=== PATIENT | male | born 1990 | race Caucasian/White ===

== ENCOUNTER 2017-02-03 17:52 | Emergency (ER) | payer MEDICAID, OTHER ==
[~2017-02-03] VITALS: Ht 180.3 cm; Wt 90.7 kg
--- NOTE | 2017-02-03 19:40 | ED Neurological Problem ---
General Chief Complaint: Neurological Problems Stated Complaint: SEIZURE Nursing Triage Note: c/o possible seizure activity. Pt has been off his seizure and psych meds x 1 month. Pt awake, alerty, and active on ER admission. Nursing Sepsis Screen: No Definite Risk Source: patient Exam Limitations: other (flight of ideas) History of Present Illness Time seen by provider: 19:40 Initial Comments 26-year-old male patient presents to the emergency department with complaints of possible seizure activity. Patient was brought to the ED by EMS. States he has been off of his seizure and psychiatric medications for one month. States he moved here from [place]. Reports seizure is similar to usual seizures. States his was present at the time of incident. reported patient slumped over in the chair and became unresponsive. Reportedly patient was shaking for approximately 1 minute. Patient states he was told by his that they laid him on the floor to keep him from biting his tongue. Does complain of a headache and states this is normal for post seizure symptoms. Denies being incontinent of bowel or bladder. Timing/Duration: other (just prior to arrival. Symptoms resolved.) Allergies and Home Medications Allergies Coded Allergies: No Known Drug Allergies (Unverified , 02/03/17) Home Medications Aripiprazole 20 Mg Tablet, 20 MG PO DAILY, #30 Ref 0 Prescribed by: NALINI SEWELL on 02/03/171954 Carbamazepine 200 Mg Tablet, 200 MG PO TID, #90 Ref 0 Prescribed by: NALINI SEWELL on 02/03/171954 Escitalopram Oxalate 20 Mg Tablet, 20 MG PO DAILY, #30 Ref 0 Prescribed by: NALINI SEWELL on 02/03/171954 Levetiracetam 500 Mg Tablet, 500 MG PO BID, #60 Ref 0 Prescribed by: NALINI SEWELL on 02/03/171954 Past Zmpbvoo-Yybmsr-Rcssea Hx Patient Social History Alcohol Use: Denies Use Recreational Drug Use: No Recent Foreign Travel: No Contact w/Someone Who Travel: No Recent Infectious Disease Expo: No Physical Exam Vital Signs Vital Sign - Last 12Hours 02/03/17 17:55 Temp 97.5 Pulse 70 Resp 16 B/P (MAP) 110/65 Pulse Ox 98 O2 Delivery Room Air Capillary Refill : Less Than 3 Seconds Progress/Results/Core Measures Results/Orders Vital Signs/I&O Vital Sign - Last 12Hours 02/03/17 17:55 Temp 97.5 Pulse 70 Resp 16 B/P (MAP) 110/65 Pulse Ox 98 O2 Delivery Room Air Blood Pressure Mean: 80 Departure Impression Impression: Primary Impression: Seizure disorder Additional Impression: Medication refill Disposition: HOME, SELF-CARE Condition: Improved Departure-Patient Inst. Decision time for Depature: 19:40 Referrals: UNKNOWN (PCP/Family) Primary Care Physician Patient Instructions: Epilepsy in Adults Add. Discharge Instructions: All discharge instructions reviewed with patient and/or family. Voiced understanding. Medications as instructed. Tylenol Extra Strength over-the- counter as directed for pain or headache. Ibuprofen 800 mg by mouth every 8 hours as needed for pain or headache. Follow-up with [facility] as an outpatient for recheck and all further medication refills. Expect a call from [facility] to notify you of appointment time for outpatient services/follow-up. Follow-up with the primary care physician of your choice to establish care as an outpatient. Call Sunday for appointment time. Return to the emergency department for worsened headache, changes in behavior, slurred speech, shortness of air, seizure, chest pain, vomiting, neck pain, back pain, or any other concerns. Scripts Carbamazepine (Tegretol) 200 Mg Tablet 200 MG PO TID, #90 TAB 0 Refills Prov: NALINI SEWELL 02/03/17 Levetiracetam (Keppra) 500 Mg Tablet 500 MG PO BID, #60 TAB 0 Refills Prov: NALINI SEWELL 02/03/17 Aripiprazole (Abilify) 20 Mg Tablet 20 MG PO DAILY, #30 TAB 0 Refills Prov: NALINI SEWELL 02/03/17 Escitalopram Oxalate (Lexapro) 20 Mg Tablet 20 MG PO DAILY, #30 TAB 0 Refills Prov: NALINI SEWELL 02/03/17 Work/School Note: Local [employer] Listing NALINI SEWELL Feb 03, 2017 19:40
[2017-02-03] MEDS ORDERED: ARPZ20T PO (19:55)
[2017-02-03] MEDS ORDERED: ESCI20TA PO (19:55)
[2017-02-03] MEDS ORDERED: CARB200T PO (19:55)
[2017-02-03] MEDS ORDERED: LEVE500T99 PO (19:55)
[2017-02-03] MEDS ORDERED: carBAMazepine 200 MG (TEGretol) TAB PO ONE (20:15)
[2017-02-03] MEDS ORDERED: ARIPIPRAZOLE 10 MG (ABILIFY) TAB PO ONE (20:15)
[2017-02-03] MEDS ORDERED: LEVETIRACETAM INJECTION 1,000 MG in NS (IVPB) 100 ML IV ONE (20:15)
[2017-02-03 21:06] VITALS: BP 110/65
== END 2017-02-03 21:06 | disposition home or self-care (01) ==
LOC: ER 17:53
DX: G40.909 Epilepsy, unspecified, not intractable, without status epilepticus (principal)
CPT/HCPCS: 96374; 99283

== ENCOUNTER 2017-03-15 21:46 | Emergency (ER) | payer SELFPAY ==
[~2017-03-15] VITALS: Ht 180.3 cm; Wt 90.7 kg
[~2017-03-15 21:46] MED LIST: ARPZ20T PO; CARB200T PO; ESCI20TA PO; LEVE500T99 PO
[2017-03-15] MEDS ORDERED: SULF1TAB35 PO (22:14)
--- NOTE | 2017-03-15 22:14 | ED Integumentary General ---
General Chief Complaint: Skin/Wound Problems Stated Complaint: LT SHOULDER WOUND/SORE Source: patient Exam Limitations: no limitations History of Present Illness Time seen by provider: 22:12 Initial Comments To ER with a left shoulder wound that he first noticed yesterday. This began as a pimple and then this morning this became larger and ruptured on its own and he states blood was gushing down his back. No fever or chills. History of abscesses. Timing/Duration: yesterday Severity: mild Associated Symptoms: denies symptoms Allergies and Home Medications Allergies Coded Allergies: No Known Drug Allergies (Unverified , 02/03/17) Home Medications Aripiprazole 20 Mg Tablet, 20 MG PO DAILY, #30 Ref 0 Prescribed by: NALINI SEWELL on 02/03/171954 Carbamazepine 200 Mg Tablet, 200 MG PO TID, #90 Ref 0 Prescribed by: NALINI SEWELL on 02/03/171954 Escitalopram Oxalate 20 Mg Tablet, 20 MG PO DAILY, #30 Ref 0 Prescribed by: NALINI SEWELL on 02/03/171954 Levetiracetam 500 Mg Tablet, 500 MG PO BID, #60 Ref 0 Prescribed by: NALINI SEWELL on 02/03/171954 Constitutional: see HPI, No chills, No fever EENTM: see HPI Respiratory: no symptoms reported Cardiovascular: no symptoms reported Genitourinary: no symptoms reported Musculoskeletal: no symptoms reported Skin: see HPI Psychiatric/Neurological: No Symptoms Reported Endocrine: No Symptoms Reported Past Hfjgkzy-Eyjrbn-Wkjxpf Hx Patient Social History Alcohol Use: Denies Use Recreational Drug Use: No Smoking Status: Current Everyday Smoker Type Used: Cigarettes 2nd Hand Smoke Exposure: Yes Recent Foreign Travel: No Contact w/Someone Who Travel: No Recent Hopitalizations: No Immunizations Up To Date Tetanus Booster (TDap): Unknown Seasonal Allergies Seasonal Allergies: No Surgeries History of Surgeries: No Respiratory History of Respiratory Disorde: No Cardiovascular History of Cardiac Disorders: No Neurological History of Neurological Disord: Yes Neurological Disorders: Seizure Disorder Genitourinary History of Genitourinary Disor: No Gastrointestinal History of Gastrointestinal Di: No Musculoskeletal History of Musculoskeletal Dis: No Endocrine History of Endocrine Disorders: No HEENT History of HEENT Disorders: No Cancer History of Cancer: No Psychosocial History of Psychiatric Problem: Yes Behavioral Health Disorders: Anxiety, Depression Integumentary History of Skin or Integumenta: Yes Skin/Integumentary Disorders: Recent Skin Changes Family Medical History Significant Family History: No Pertinent Family Hx Physical Exam Vital Signs Capillary Refill : General Appearance: WD/WN, no apparent distress HEENT: PERRL/EOMI, normal ENT inspection Neck: non-tender, full range of motion Respiratory: normal breath sounds, no respiratory distress, no accessory muscle use Gastrointestinal: non tender, soft Extremities: normal range of motion, non-tender Neurologic/Psychiatric: alert, normal mood/affect, oriented x 3 Skin: normal color, warm/dry Skin Problem Location: other (small ulcerated area to the left shoulder. There is minimal surrounding erythema without induration or fluctuance. Culture of this wound bed was taken. No active bleeding.) Progress/Results/Core Measures Results/Orders My Orders Orders - NIGEL BARFIELD APRN Wound Culture (03/15/17 22:11) Departure Impression Impression: Primary Impression: Abscess Disposition: 01 HOME, SELF-CARE Condition: Stable Departure-Patient Inst. Decision time for Depature: 22:13 Referrals: NO,LOCAL PHYSICIAN (PCP/Family) Primary Care Physician Patient Instructions: Wound Care (DC) Add. Discharge Instructions: 1. Take antibiotics as directed starting tomorrow 2. Return to ER for any concerns 3. All discharge instructions reviewed with patient and/or family. Voiced understanding. Scripts Sulfamethoxazole/Trimethoprim (Bactrim Ds Tablet) 1 Each Tablet 1 EACH PO BID, #14 TAB Prov: NIGEL BARFIELD APRN 03/15/17 NIGEL BARFIELD APRN Mar 15, 2017 22:14
[2017-03-15 22:23] VITALS: BP 131/107
== END 2017-03-15 22:23 | disposition home or self-care (01) ==
LOC: EDUNIT# 21:46 → ER 21:48
DX: L02.414 Cutaneous abscess of left upper limb (principal); G40.909 Epilepsy, unspecified, not intractable, without status epilepticus; F41.9 Anxiety disorder, unspecified; F32.9 Major depressive disorder, single episode, unspecified; F17.210 Nicotine dependence, cigarettes, uncomplicated
CPT/HCPCS: 87070; 87077; 87186; 87205; 99282

== ENCOUNTER 2017-03-19 20:32 | Emergency (ER) | payer SELFPAY ==
[~2017-03-19] VITALS: Ht 180.3 cm; Wt 90.7 kg
[~2017-03-19 20:32] MED LIST changes: +SULF1TAB35 PO
[2017-03-19] MEDS ORDERED: LACTATED RINGERS 1,000 ML IV ONE (20:37)
[2017-03-19 20:58] LABS: BASOPHILS % (AUTO) 0 % (0-10); EOSINOPHILS # (AUTO) 0.1 10^3/uL (0.0-0.3); EOSINOPHILS % (AUTO) 2 % (0-10); LYMPHOCYTES # (AUTO) 1.9 X 10^3 (1.0-4.0); LYMPHOCYTES % (AUTO) 32 % (12-44); MEAN CORPUSCULAR HEMOGLOBIN 29 PG (25-34); MEAN CORPUSCULAR HGB CONC 34 G/DL (32-36); MEAN CORPUSCULAR VOLUME 85 FL (80-99); MEAN PLATELET VOLUME 10.1 FL (7.4-10.4); MONOCYTES # (AUTO) 0.6 X 10^3 (0.0-1.0); MONOCYTES % (AUTO) 9 % (0-12); NEUTROPHILS # (AUTO) 3.4 X 10^3 (1.8-7.8); NEUTROPHILS % (AUTO) 57 % (42-75); PLATELET COUNT 153 10^3/uL (130-400); RED CELL DISTRIBUTION WIDTH 12.8 % (10.0-14.5)
--- NOTE | 2017-03-19 21:10 | ED Psychosocial ---
General Stated Complaint: SEIZURE Source: patient (EXTREMELY DIFFICULT HISTORIAN--VERY DIFFICULT TO KEEP ON SUBJECT), old records History of Present Illness Time seen by provider: 20:32 Initial Comments PT ARRIVES VIA EMS FROM HOME EMS WAS CALLED FOR PT WITH ALLEGED SEIZURE ACTIVITY. DETAILS UNKNOWN PT WITH HX OF SEIZURES, WELL EXTENSIVE PSYCH ISSUES PT RECENTLY MOVED HERE FROM [place] PT CLAIMS HE HAS BEEN OUT OF ALL OF HIS SEIZURE AND PSYCH MEDICATIONS FOR UNKNOWN LENGTH OF TIME PT IS NOT POST-ICTAL NO INCONTINENCE OF BOWEL OR BLADDER PT STATES HE DOES NOT WANT TO BE SEEN FOR HIS SEIZURE STATES HE WANTS A PSYCH EVALUATION PT STATES HE "WANTS TO SLIT HIS WRISTS" --THIS IS ONGOING PROBLEM FOR A VERY LONG TIME, AND IS NO DIFFERENT TODAY HAS NOT SOUGHT CARE FOR THIS SINCE LEAVING [place] PT RECEIVED AN UPSETTING TEXT AT SOME TIME AND THIS APPEARS TO BE WHAT HE IS FIXATED ON AT THIS TIME ON REVIEW OF OLD CHARTS, PT WAS HERE 02/03/17 FOR ALLEGED SEIZURE ACTIVITY ALSO , AND HAD REPORTED AT THAT TIME HE WAS OUT OF ALL OF HIS MEDICATIONS AND RX'S WERE WRITTEN FOR THE FOLLOWING: -CARBAMAZEPINE (TEGRETOL) 200 MG 1 TID #90 -LEVETIRACETAM (KEPPRA) 500 MG 1 BID #60 -ARIPIPRAZOLE ( ABILIFY ) 20 MG 1 DAILY #30 -ESCITALOPRAM ( LEXAPRO ) 20 MG 1 DAILY #30 [facility] WAS CONTACTED AND ARRANGEMENTS WERE MADE FOR PT TO FOLLOW UP WITH THEM, WHICH PT DID NOT DO--PT STATES "NO ONE WILL SEE HIM" AT [facility] OR [facility] OR [facility] PT WAS ALSO HERE 03/15/17 FOR ABSCESS/CELLULITIS Allergies and Home Medications Allergies Coded Allergies: No Known Drug Allergies (Unverified , 02/03/17) Home Medications Aripiprazole 20 Mg Tablet, 20 MG PO DAILY, #30 Ref 0 Prescribed by: NALINI SEWELL on 02/03/171954 Carbamazepine 200 Mg Tablet, 200 MG PO TID, #90 Ref 0 Prescribed by: NALINI SEWELL on 02/03/171954 Escitalopram Oxalate 20 Mg Tablet, 20 MG PO DAILY, #30 Ref 0 Prescribed by: NALINI SEWELL on 02/03/171954 Levetiracetam 500 Mg Tablet, 500 MG PO BID, #60 Ref 0 Prescribed by: NALINI SEWELL on 02/03/171954 Sulfamethoxazole/Trimethoprim 1 Each Tablet, 1 EACH PO BID, #14 Prescribed by: NIGEL BARFIELD on 03/15/174 Constitutional: other (UNABLE TO OBTAIN ANY RELEVANT INFORMATION FROM PT) Psychiatric/Neurological: See HPI Past Fdnuqah-Lpbuoa-Gcpmzd Hx Patient Social History 2nd Hand Smoke Exposure: Yes Recent Hopitalizations: No Immunizations Up To Date Tetanus Booster (TDap): Unknown Seasonal Allergies Seasonal Allergies: No Surgeries History of Surgeries: No Respiratory History of Respiratory Disorde: No Cardiovascular History of Cardiac Disorders: No Neurological History of Neurological Disord: Yes Neurological Disorders: Seizure Disorder Genitourinary History of Genitourinary Disor: No Gastrointestinal History of Gastrointestinal Di: No Musculoskeletal History of Musculoskeletal Dis: No Endocrine History of Endocrine Disorders: No HEENT History of HEENT Disorders: No Cancer History of Cancer: No Psychosocial History of Psychiatric Problem: Yes (SUICIDAL IDEATIONS) Behavioral Health Disorders: Anxiety, Depression Integumentary History of Skin or Integumenta: Yes Skin/Integumentary Disorders: Recent Skin Changes Family Medical History Significant Family History: No Pertinent Family Hx Physical Exam Vital Signs Capillary Refill : General Appearance: WD/WN, no apparent distress, other (PT WITH CONSTANT MOVEMENTS OF ENTIRE BODY, MOUTH AND FACE, WITH CONSTANT 'TWITCHING" OF FACE) Respiratory: normal breath sounds Cardiovascular: regular rate, rhythm 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, no motor/sensory deficits, alert, other (CONSTANT MOVEMENTS, CRUSING, BELLIGERANT, VERY ARGUMENTATIVE, VERY DIFFICULT TO KEEP ON SUBJECT--SPEECH VERY RAPID) Progress/Results/Core Measures Results/Orders Lab Results Laboratory Tests Test 03/19/17 20:47 Range/Units White Blood Count 6.0 4.3-11.0 10^3/uL Red Blood Count 5.30 4.35-5.85 10^6/uL Hemoglobin 15.4 13.3-17.7 G/DL Hematocrit 45 40-54 % Mean Corpuscular Volume 85 80-99 FL Mean Corpuscular Hemoglobin 29 25-34 PG Mean Corpuscular Hemoglobin Concent 34 32-36 G/DL Red Cell Distribution Width 12.8 10.0-14.5 % Platelet Count 153 130-400 10^3/uL Mean Platelet Volume 10.1 7.4-10.4 FL Neutrophils (%) (Auto) 57 42-75 % Lymphocytes (%) (Auto) 32 12-44 % Monocytes (%) (Auto) 9 0-12 % Eosinophils (%) (Auto) 2 0-10 % Basophils (%) (Auto) 0 0-10 % Neutrophils # (Auto) 3.4 1.8-7.8 X 10^3 Lymphocytes # (Auto) 1.9 1.0-4.0 X 10^3 Monocytes # (Auto) 0.6 0.0-1.0 X 10^3 Eosinophils # (Auto) 0.1 0.0-0.3 10^3/uL Basophils # (Auto) 0.0 0.0-0.1 10^3/uL Sodium Level 143 135-145 MMOL/L Potassium Level 3.4 L 3.6-5.0 MMOL/L Chloride Level 110 H 98-107 MMOL/L Carbon Dioxide Level 22 21-32 MMOL/L Anion Gap 11 5-14 MMOL/L Blood Urea Nitrogen 13 7-18 MG/DL Creatinine 1.08 0.60-1.30 MG/DL Estimat Glomerular Filtration Rate > 60 BUN/Creatinine Ratio 12 Glucose Level 78 70-105 MG/DL Calcium Level 9.3 8.5-10.1 MG/DL Magnesium Level 2.1 1.8-2.4 MG/DL Total Bilirubin 0.6 0.1-1.0 MG/DL Aspartate Amino Transf (AST/SGOT) 21 5-34 U/L Alanine Aminotransferase (ALT/SGPT) 18 0-55 U/L Alkaline Phosphatase 98 40-136 U/L Total Creatine Kinase 451 H 30-200 U/L Creatine Kinase MB 2.0 <6.6 NG/ML Total Protein 7.2 6.4-8.2 GM/DL Albumin 4.4 3.2-4.5 GM/DL TSH Nance Testing 0.58 0.35-4.94 UIU/ML Carbamazepine (Tegretol) Level 3.2 L 4.0-12.0 UG/ML My Orders Orders - DELL WELCH DO Saline Lock/Iv-Start (03/19/17 20:37) Ekg Tracing (03/19/17 20:37) Monitor-Rhythm Ecg Trace Only (03/19/17 20:37) Carbamazepine (Tegretol) (03/19/17 20:37) Cbc With Automated Diff (03/19/17 20:37) Comprehensive Metabolic Panel (03/19/17 20:37) Creatine Kinase (03/19/17 20:37) Creatine Kinase Mb (03/19/17 20:37) Magnesium (03/19/17 20:37) Thyroid Analyzer (03/19/17 20:37) Saline Lock/Iv-Start (03/19/17 20:37) Lactated Ringers (Lr 1000 Ml Iv Solution (03/19/17 20:37) Progress Note : Progress Note PT REFUSED TO GIVE URINE SPECIMEN PT MADE NO SUICIDAL STATEMENTS FOR REMAINDER OF ER STAY ARRIVED DURING COURSE OF ER STAY 2109--PT REMAINS BELLIGERENT AND ARGUMENTATIVE, AND NOW WANTS TO LEAVE, SIGNED OUT AMA ECG Initial ECG Impression Time: 20:40 Initial ECG Rate: 76 Initial ECG Rhythm: Normal Sinus Initial ECG Comparisson: No Previous ECG Available Departure Impression Impression: Primary Impression: Left against medical advice Disposition: 07 AGAINST MEDICAL ADVICE Condition: Against Medical Advice Departure-Patient Inst. Referrals: NO,LOCAL PHYSICIAN (PCP/Family) Primary Care Physician DELL WELCH DO Mar 19, 2017 21:10
[2017-03-19 21:19] LABS: ALANINE AMINOTRANSFERASE 18 U/L (0-55); ALBUMIN 4.4 GM/DL (3.2-4.5); ANION GAP 11 MMOL/L (5-14); ASPARTATE AMINO TRANSFERASE 21 U/L (5-34); BILIRUBIN,TOTAL 0.6 MG/DL (0.1-1.0); BLOOD UREA NITROGEN 13 MG/DL (7-18); BUN/CREATININE RATIO 12; CALCIUM 9.3 MG/DL (8.5-10.1); CARBON DIOXIDE 22 MMOL/L (21-32); CHLORIDE 110 MMOL/L (98-107); CREATINE KINASE 451 U/L (30-200); CREATININE SERUM 1.08 MG/DL (0.60-1.30); GFR ESTIMATED > 60; GLUCOSE 78 MG/DL (70-105); MAGNESIUM 2.1 MG/DL (1.8-2.4); POTASSIUM 3.4 MMOL/L (3.6-5.0); SODIUM 143 MMOL/L (135-145); TOTAL PROTEIN 7.2 GM/DL (6.4-8.2)
[2017-03-19 21:25] VITALS: BP 134/84
[2017-03-19 21:39] LABS: CARBAMAZEPINE (TEGRETOL) 3.2 UG/ML (4.0-12.0)
== END 2017-03-19 21:25 | disposition left against medical advice (07) ==
LOC: ER 20:32 → EDUNIT# 20:32 → ER 21:25
DX: G40.909 Epilepsy, unspecified, not intractable, without status epilepticus (principal); F32.9 Major depressive disorder, single episode, unspecified; F41.9 Anxiety disorder, unspecified
CPT/HCPCS: 36415; 80053; 80156; 82550; 82553; 83735; 84443; 85025; 93005; 93041

== ENCOUNTER 2017-12-02 22:24 | Emergency (ER) | payer MEDICAID ==
[~2017-12-02] VITALS: Ht 188 cm; Wt 77.1 kg
--- OUTSIDE RECORDS SUMMARY | 2017-12-02 22:40 | XMS REPORT ---
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 413326906 ALLERGIES Substance Reaction Event Type Date Status Resperal body changes Drug Allergy Apr, Active Proline eyes roll Drug Allergy Apr, Active Haldol muscel spasims Drug Allergy Apr, Active ENCOUNTERS Encounter Location Date Diagnosis [facility] [id number] [place] [address] October, [facility] [id number] [place] [address] October, Seizure-like activity R56.9 [facility] [id number] [place] [address]- [address] October, Mood disorder F39 and Seizure-like activity R56.9 [facility] [id number] [place] [address]- [address] Sep, Mood disorder F39 [facility] [id number] [place] [address]- [address] Aug, Mood disorder F39 [facility] [id number] [place] [address]- [address] Aug, Encounter for immunization Z23 [facility] [id number], [place] [address] Jul, [facility] [id number] [place] [address] Jul, [facility] [address], [place] [address] Jul, Chronic post-traumatic stress disorder (PTSD) F43.12 ; ADHD (attention deficit hyperactivity disorder), combined type F90.2 ; 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 ; Seizure-like activity R56.9 and Tic disorder F95.9 [facility] [id number] [place] [address]- [address] Jul, [facility] [id number] [place] [address] 740[address]- 27[address] Jun, Mood disorder F39 ; Seizure-like activity R56.9 ; ADHD ( attention deficit hyperactivity disorder), combined type F90.2 ; Chronic post- traumatic stress disorder (PTSD) F43.12 and 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 [facility] [address] [address] Jun, [facility] [id number] [place] [address]- [address] Jun, [facility] [address], [place] [address] Apr, Mood disorder F39 ; Chronic post-traumatic stress disorder ( PTSD) F43.12 ; ADHD (attention deficit hyperactivity disorder), combined type F90.2 ; 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12 ; ADHD (attention deficit hyperactivity disorder), combined type F90.2 and 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 [place] [address] [address] Mar, Mood disorder F39 ; Chronic post-traumatic stress disorder ( PTSD) F43.12 ; ADHD (attention deficit hyperactivity disorder), combined type F90.2 and 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 States he only has $20 -ANNI Melo PLAN OF CARE Activity Details Follow Up 3 Months with [facility] f/u Reason: VITAL SIGNS Height 72.75 in 2017-04-19 Weight 194 lbs 2017-04-19 Temperature 98.4 degrees Fahrenheit 2017-04-19 Heart Rate 80 bpm 2017-04-19 Respiratory Rate 18 2017-04-19 BMI 25.77 kg/m2 2017-04-19 Blood pressure systolic 110 mmHg 2017-04-19 Blood pressure diastolic 60 mmHg 2017-04-19 MEDICATIONS Medication Instructions Dosage Frequency Start Date End Date Duration Status Tegretol 200 mg Orally Three times a day 1 tablet 8h 90 days Active Keppra 500 mg Orally Twice a day 1 tablet 12h Active Lexapro 20 mg Orally Once a day 1 tablet 24h 30 days Active Abilify 10 mg Orally Once a day 1 tablet 24h Mar, 30 day(s) Active RESULTS No Results PROCEDURES No Known procedures INSTRUCTIONS MEDICATIONS ADMINISTERED No Known Medications MEDICAL (GENERAL) HISTORY Type Description Date Medical History PTSD Medical History schizophrenia Medical History bipolar disorder Medical History attention deficit hyperactivity disorder Medical History manic depression Medical History pseudo seizures-stress induced Surgical History ear tubes Hospitalization History [address] Hospitalization History [facility]- Hospitalization History [facility] Hospitalization History [facility] Hospitalization History [facility] Hospitalization History [facility] [place] Hospitalization History [facility]
--- OUTSIDE RECORDS SUMMARY | 2017-12-02 22:40 | XMS REPORT ---
Author Author AGUILA PASCUAL 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 627308403 ALLERGIES Substance Reaction Event Type Date Status Resperal body changes Drug Allergy Mar, Active Proline eyes roll Drug Allergy Mar, Active Haldol muscel spasims Drug Allergy Mar, Active ENCOUNTERS Encounter Location Date Diagnosis [facility] [id number] [place] [address] 66240- 7694 October, [facility] [id number] [place] [address] 63489- 2379 October, Seizure-like activity R56.9 [facility] [id number] [place] [address] 06276- 0101 October, Mood disorder F39 and Seizure-like activity R56.9 [facility] [address] [place] [address] 85106- 9657 Sep, Mood disorder F39 [facility] [id number] [place] [address] 32666- 4788 Aug, Mood disorder F39 [facility] [id number] [place] [address] 76336- 9740 Aug, Encounter for immunization Z23 [facility] [address], [place] [address] Jul, [facility] [id number] [place] [address] 02389- 5321 Jul, [facility] [address], [place] [address] Jul, Chronic post-traumatic stress disorder (PTSD) F43.12 ; ADHD (attention deficit hyperactivity disorder), combined type F90.2 ; 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 ; Seizure-like activity R56.9 and Tic disorder F95.9 [facility] [address] [place] [address] 63514- 7795 Jul, [facility] [id number] [place] [address] 43664- 7981 Jun, Mood disorder F39 ; Seizure-like activity R56.9 ; ADHD ( attention deficit hyperactivity disorder), combined type F90.2 ; Chronic post- traumatic stress disorder (PTSD) F43.12 and 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 [facility] [address], [place] [address] Jun, [facility] [address] [place] [address] 28990- 6597 Jun, [facility] [address], [place] [address] Apr, Mood disorder F39 ; Chronic post-traumatic stress disorder ( PTSD) F43.12 ; ADHD (attention deficit hyperactivity disorder), combined type F90.2 ; 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 and Seizure-like activity R56.9 [facility] [address], [place] [address] 02 Apr, 2017 Seizure-like activity R56.9 ; Tobacco use Z72.0 ; Mood disorder F39 and Chronic post-traumatic stress disorder (PTSD) F43.12 [facility] [address] [place] [address] 36234- 9975 Mar, [place] [id number], [place] [address] Mar, [place] [address], [place] [address] Mar, Mood disorder F39 ; Chronic post-traumatic stress disorder ( PTSD) F43.12 ; ADHD (attention deficit hyperactivity disorder), combined type F90.2 and 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 [place] [address], [place] [address] Mar, Mood disorder F39 ; Chronic post-traumatic stress disorder ( PTSD) F43.12 ; ADHD (attention deficit hyperactivity disorder), combined type F90.2 and 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 [place] [address], [place] [address] Mar, Mood disorder F39 ; Chronic post-traumatic stress disorder ( PTSD) F43.12 ; ADHD (attention deficit hyperactivity disorder), combined type F90.2 and 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 [place] [address], [place] [address] Dec, IMMUNIZATIONS No Known Immunizations SOCIAL HISTORY Never Assessed REASON FOR VISIT [facility] Updated-ADaviedR PLAN OF CARE VITAL SIGNS MEDICATIONS Medication Instructions Dosage Frequency Start Date End Date Duration Status Abilify 10 MG Orally Once a day 1 tablet 24h Mar, 30 day(s) Active Lexapro 10 mg Orally Once a day 2 tablets 24h 30 days Active Tegretol 200 mg Orally Three times a day 1 tablet 8h Active Keppra 500 mg Orally Twice a day 1 tablet 12h Active RESULTS No Results PROCEDURES No Known procedures INSTRUCTIONS MEDICATIONS ADMINISTERED No Known Medications MEDICAL (GENERAL) HISTORY Type Description Date Medical History PTSD Medical History schizophrenia Medical History bipolar disorder Medical History attention deficit hyperactivity disorder Medical History manic depression Medical History pseudo seizures-stress induced Surgical History ear tubes Hospitalization History [place] [address]- Hospitalization History [facility]- Hospitalization History [facility]- Hospitalization History [facility] [place]- Hospitalization History [facility] Hospitalization History [facility] in [place] Hospitalization History [facility], Lauren KOO
--- OUTSIDE RECORDS SUMMARY | 2017-12-02 22:40 | XMS REPORT ---
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 400634868 ALLERGIES Substance Reaction Event Type Date Status Resperal body changes Drug Allergy Apr, Active Proline eyes roll Drug Allergy Apr, Active Haldol muscel spasims Drug Allergy Apr, Active ENCOUNTERS Encounter Location Date Diagnosis [facility] [id number] [place] [address] 53901- 4363 October, [facility] [id number] [place] [address] 65558- 9869 October, Seizure-like activity R56.9 [facility] [id number] [place] [address] 26592- 3436 October, Mood disorder F39 and Seizure-like activity R56.9 [facility] [address] [place] [address] 19890- 6654 Sep, Mood disorder F39 [facility] [id number] [place] [address] 75151- 4259 Aug, Mood disorder F39 [facility] [id number] [place] [address] 64747- 5210 Aug, Encounter for immunization Z23 [facility] [address] [address] 6[address] Jul, [facility] [id number] [place] [address] 98556- 9561 Jul, [facility] [address] [address] 0852 Jul, Chronic post-traumatic stress disorder (PTSD) F43.12 ; ADHD (attention deficit hyperactivity disorder), combined type F90.2 ; 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 ; Seizure-like activity R56.9 and Tic disorder F95.9 [facility] [address] [place] [address] 82473- 0719 Jul, [facility] [id number] [place] [address] 63028- 1835 Jun, Mood disorder F39 ; Seizure-like activity R56.9 ; ADHD ( attention deficit hyperactivity disorder), combined type F90.2 ; Chronic post- traumatic stress disorder (PTSD) F43.12 and 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 [facility] [address] [address] 15[address] Jun, [facility] [address] [place] [address] 82270- 7034 Jun, [facility] [address] [address] 6465 Apr, Mood disorder F39 ; Chronic post-traumatic stress disorder ( PTSD) F43.12 ; ADHD (attention deficit hyperactivity disorder), combined type F90.2 ; 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 and Seizure-like activity R56.9 [facility] [address] [address]- [address] 02 Apr, 2017 Seizure-like activity R56.9 ; Tobacco use Z72.0 ; Mood disorder F39 and Chronic post-traumatic stress disorder (PTSD) F43.12 [facility] [address] [place] [address] 28024- 7815 Mar, [place] [id number] [address]- [address] Mar, [place] [address] [place] [address] 88031- 6801 Mar, Mood disorder F39 ; Chronic post-traumatic stress disorder ( PTSD) F43.12 ; ADHD (attention deficit hyperactivity disorder), combined type F90.2 and 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 [place] [address] [place] [address] 66237- 4137 Mar, Mood disorder F39 ; Chronic post-traumatic stress disorder ( PTSD) F43.12 ; ADHD (attention deficit hyperactivity disorder), combined type F90.2 and 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 [place] [address] [place] [address] 70421- 8350 Mar, Mood disorder F39 ; Chronic post-traumatic stress disorder ( PTSD) F43.12 ; ADHD (attention deficit hyperactivity disorder), combined type F90.2 and 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 [place] [address] [address]- 5982 Dec, IMMUNIZATIONS No Known Immunizations SOCIAL HISTORY Never Assessed REASON FOR VISIT f/u--[facility] MA PLAN OF CARE Activity Details Follow Up 6 Weeks Reason: VITAL SIGNS Height 72.75 in 2017-05-15 Weight 205.2 lbs 2017-05-15 Heart Rate 88 bpm 2017-05-15 Respiratory Rate 20 2017-05-15 BMI 27.26 kg/m2 2017-05-15 Blood pressure systolic 120 mmHg 2017-05-15 Blood pressure diastolic 60 mmHg 2017-05-15 MEDICATIONS Medication Instructions Dosage Frequency Start Date End Date Duration Status Abilify 10 mg Orally Once a day 1 tablet 24h Mar, Active Lexapro 20 mg Orally Once a day 1 tablet 24h Active Metoprolol Tartrate 25 MG Orally Twice a day for panic 1 tablet with food Apr, Active Keppra 500 mg Orally Twice a day 1 tablet 12h Not-Taking Tegretol 200 mg Orally Three times a day 1 tablet 8h Active RESULTS No Results PROCEDURES No Known procedures INSTRUCTIONS MEDICATIONS ADMINISTERED No Known Medications MEDICAL (GENERAL) HISTORY Type Description Date Medical History PTSD Medical History schizophrenia Medical History bipolar disorder Medical History attention deficit hyperactivity disorder Medical History manic depression Medical History pseudo seizures-stress induced Surgical History ear tubes Hospitalization History [place] [address]- Hospitalization History [facility]- Hospitalization History [facility] Hospitalization History [facility] [place]- Hospitalization History [facility] Hospitalization History [facility] in [place] Hospitalization History [facility], [facility]
--- OUTSIDE RECORDS SUMMARY | 2017-12-02 22:41 | XMS REPORT ---
Author Author Eleazar TRISTEN Organization [facility] Address [address] [place] [address] Care Team Providers Care Analysis Manager Name Role Phone ancelmoancelmoWILBERTAMINAKEATONTRISTNE Cervantes Unavailable PROBLEMS Type Condition ICD9-CM Code TSJ72-IL Code Onset Dates Condition Status SNOMED Code Problem Tic disorder F95.9 Active 096846 Problem Seizure-like activity R56.9 Active 18698181 Problem Mood disorder F39 Active 64498332 Problem ADHD (attention deficit hyperactivity disorder), combined type F90.2 Active 81117321 Problem Chronic post-traumatic stress disorder (PTSD) F43.12 Active 753073436 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 986108571 ALLERGIES Substance Reaction Event Type Date Status Resperal body changes Drug Allergy Mar, Active Proline eyes roll Drug Allergy Mar, Active Haldol muscel spasims Drug Allergy Mar, Active ENCOUNTERS Encounter Location Date Diagnosis [facility] [id number] [place] [address] 50020- 9314 October, [facility] [id number] [place] [address] 61107- 4734 October, Seizure-like activity R56.9 [facility] [id number] [place] [address] 67887- 3701 October, Mood disorder F39 and Seizure-like activity R56.9 [facility] [id number] [place] [address] 35087- 8879 Sep, Mood disorder F39 [facility] [id number] [place] [address] 68315- 5000 Aug, Mood disorder F39 [facility] [id number] [place] [address] 91794- 0225 Aug, Encounter for immunization Z23 [facility] [address] [address] 3[address] Jul, [facility] [id number] [address]- 8[address] Jul, [facility] [address] [address]- 8425 Jul, Chronic post-traumatic stress disorder (PTSD) F43.12 ; ADHD (attention deficit hyperactivity disorder), combined type F90.2 ; 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 ; Seizure-like activity R56.9 and Tic disorder F95.9 [facility] [address] [place] [address] 67869- 4231 Jul, [facility] [id number] [place] [address] 97909- 6831 Jun, Mood disorder F39 ; Seizure-like activity R56.9 ; ADHD ( attention deficit hyperactivity disorder), combined type F90.2 ; Chronic post- traumatic stress disorder (PTSD) F43.12 and 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 [facility] [address] [address]- 1613 Jun, [facility] [address] [place] [address] 27230- 4447 Jun, [facility] [address] [address]- 4189 Apr, Mood disorder F39 ; Chronic post-traumatic stress disorder ( PTSD) F43.12 ; ADHD (attention deficit hyperactivity disorder), combined type F90.2 ; 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 and Seizure-like activity R56.9 [facility] [address] [address]- 4031 Apr, Seizure-like activity R56.9 ; Tobacco use Z72.0 ; Mood disorder F39 and Chronic post-traumatic stress disorder (PTSD) F43.12 [facility] [address] [place] [address] 84142- 8763 Mar, [facility] [id number] [address]- 5701 Mar, [place] [address] [address]- 3366 Mar, Mood disorder F39 ; Chronic post-traumatic stress disorder ( PTSD) F43.12 ; ADHD (attention deficit hyperactivity disorder), combined type F90.2 and 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 [place] [id number] [address]- 0227 Mar, Mood disorder F39 ; Chronic post-traumatic stress disorder ( PTSD) F43.12 ; ADHD (attention deficit hyperactivity disorder), combined type F90.2 and 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 [place] [address] [address]- 7[address] Mar, Mood disorder F39 ; Chronic post-traumatic stress disorder ( PTSD) F43.12 ; ADHD (attention deficit hyperactivity disorder), combined type F90.2 and 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 [place] [id number] [address]- 7843 Dec, IMMUNIZATIONS No Known Immunizations SOCIAL HISTORY Never Assessed REASON FOR VISIT f/u PLAN OF CARE Activity Details Follow Up 1 week Reason:Mood disorder, ADHD, PTSD VITAL SIGNS MEDICATIONS Unknown Medications RESULTS No Results PROCEDURES Procedure Date Ordered Result Body Site Psych diagnostic evaluation, established patient Mar 26, 2017 INSTRUCTIONS MEDICATIONS ADMINISTERED No Known Medications MEDICAL (GENERAL) HISTORY Type Description Date Medical History PTSD Medical History schizophrenia Medical History bipolar disorder Medical History attention deficit hyperactivity disorder Medical History manic depression Medical History pseudo seizures-stress induced Surgical History ear tubes Hospitalization History [facility]- Hospitalization History [facility]- Hospitalization History [facility]- Hospitalization History [facility] [place]- Hospitalization History [facility] Hospitalization History [facility] in [place] Hospitalization History [facility]
--- NOTE | 2017-12-02 23:01 | ED Back Pain ---
General Chief Complaint: Back Problems Stated Complaint: BACK PAIN Nursing Triage Note: PT PRESENTS TO ER WITH COMPLAINT OF MIDDLE UPPER BACK PAIN. DOES NOT KNOW CAUSE. Nursing Sepsis Screen: No Definite Risk Source of Information: Patient, Other Exam Limitations: No Limitations History of Present Illness Date Seen by Provider: Dec 02, 2017 Time Seen by Provider: 22:53 Initial Comments The patient presents to the ER by private conveyance with a chief complaint that for the past couple days he's been having some back pain which she thinks may be because he just recently started a job at [employer]. He was not working before that. He has not had any trauma, falls or been hit her in a car wreck. He does not have a history of back surgeries or back pain. This is the first time he ever had it. He has not tried any Tylenol Motrin creams back brace etc. He is not having any incontinence of bowel or bladder nor is he having any weakness pulse, numbness, paresthesias of the saddle region or other neurologic symptoms. Allergies and Home Medications Allergies Coded Allergies: guanfacine (Verified Allergy, Unknown, 12/02/17) haloperidol (Unverified Allergy, Unknown, 12/02/17) risperidone (Unverified Allergy, Unknown, 12/02/17) ziprasidone (Unverified Allergy, Unknown, 12/02/17) Home Medications Aripiprazole 20 Mg Tablet, 20 MG PO DAILY Prescribed by: NALINI SEWELL on 02/03/171954 Carbamazepine 200 Mg Tablet, 200 MG PO TID Prescribed by: NALINI SEWELL on 02/03/171954 Escitalopram Oxalate 20 Mg Tablet, 20 MG PO DAILY Prescribed by: NALINI SEWELL on 02/03/171954 Levetiracetam 500 Mg Tablet, 500 MG PO BID Prescribed by: NALINI ESWELL on 02/03/171954 Patient Home Medication List Home Medication List Reviewed: Yes Constitutional: No chills, No diaphoresis, No fever EENTM: No ear discharge, No ear pain Respiratory: No cough, No short of breath Cardiovascular: No chest pain, No edema Gastrointestinal: No abdominal pain, No constipation, No diarrhea, No nausea Genitourinary: No dysuria, No pain Musculoskeletal: see HPI, back pain, muscle pain, muscle stiffness Skin: No pruritus, No rash Psychiatric/Neurological: Denies Headache, Denies Numbness, Denies Paresthesia Past Tirvcdn-Twkfur-Prgwbx Hx Patient Social History Alcohol Use: Denies Use Recreational Drug Use: No Smoking Status: Current Everyday Smoker Type Used: Cigarettes 2nd Hand Smoke Exposure: Yes Recent Foreign Travel: No Contact w/Someone Who Travel: No Recent Infectious Disease Expo: No Recent Hopitalizations: No Immunizations Up To Date Tetanus Booster (TDap): Unknown Seasonal Allergies Seasonal Allergies: No Past Medical History Surgeries: No Respiratory: No Cardiac: No Neurological: Yes Seizure Disorder Genitourinary: No Gastrointestinal: No Musculoskeletal: No Endocrine: No HEENT: No Cancer: No Psychosocial: Yes (SUICIDAL IDEATIONS) Anxiety, Depression Integumentary: Yes Recent Skin Changes Blood Disorders: No Family Medical History No Pertinent Family Hx Physical Exam Vital Signs Vital Signs - First Documented 12/02/17 22:33 Temp 98.0 Pulse 80 Resp 20 B/P (MAP) 133/82 (99) Pulse Ox 100 O2 Delivery Room Air Capillary Refill : Less Than 3 Seconds General Appearance: WD/WN, Mild Distress HEENT: PERRL/EOMI, Pharynx Normal Neck: Full Range of Motion, Non Tender, Supple Cardiovascular: Regular Rate, Rhythm, No Edema, Normal Peripheral Pulses Respiratory: Chest Non Tender, Lungs Clear, Normal Breath Sounds, No Accessory Muscle Use, No Respiratory Distress Back: Normal Inspection, No CVA Tenderness (to percussion), Vertebral Tenderness (low thoracic high lumbar bilateral paraspinous muscle tenderness to palpation) Extremity: Normal Capillary Refill, No Calf Tenderness Neurologic/Psychiatric: Alert, Oriented x3, No Motor/Sensory Deficits, Other ( normal gait) Skin: Normal Color, Warm/Dry Progress/Results/Core Measures Results/Orders Vital Signs/I&O 12/02/17 22:33 Temp 98.0 Pulse 80 Resp 20 B/P (MAP) 133/82 (99) Pulse Ox 100 O2 Delivery Room Air Blood Pressure Mean: 99 Progress Progress Note : Time: 22:56 Progress Note Done some counseling on appropriate back pain management and will set him up with some muscle relaxants and have him follow up with primary care if he is not seeing improvement in 2 weeks. We have also encouraged him to seek out resident care provider. Departure Impression Primary Impression: Back strain Qualified Codes: S39.012A - Strain of muscle, fascia and tendon of lower back , initial encounter Disposition: HOME, SELF-CARE Condition: Stable Departure-Patient Inst. Decision time for Depature: 22:56 Referrals: NO,LOCAL PHYSICIAN (PCP/Family) Primary Care Physician Patient Instructions: Back Exercises, Low Back Pain (DC) Add. Discharge Instructions: Use the ibuprofen 800 mg every 8 hours or Aleve 2 tablets twice a day on a schedule for the next 2 weeks until your back pain is gone away. In addition to that you can use Tylenol 1000 mg every 8 hours as needed for breakthrough pain. You can use topical creams such as icy hot as needed as well as heat and ice to your back. When he started feeling better you can start the back exercises to strengthen your back. If you feel like your back is in spasm you can take one tablet of the Flexeril every 8 hours as needed. You can also seek out help from chiropractors. If you don't feel that your pain is improving in the first couple weeks then you should follow-up with your primary care doctor to continue the workup. All discharge instructions reviewed with patient and/or family. Voiced understanding. Scripts Cyclobenzaprine HCl (Cyclobenzaprine HCl) 10 Mg Tablet 10 MG PO Q8H PRN for SPASMS, #15 TAB 0 Refills Prov: MINNIE DIAZ 12/02/17 MINNIE DIAZ Dec 02, 2017 23:01
[2017-12-02] MEDS ORDERED: CYCL10TA9 PO (23:03)
[2017-12-02 23:08] VITALS: BP 133/82
== END 2017-12-02 23:08 | disposition home or self-care (01) ==
LOC: EDUNIT# 22:24 → ER 22:27
DX: S39.012A Strain of muscle, fascia and tendon of lower back, initial encounter (principal); F41.9 Anxiety disorder, unspecified; F32.9 Major depressive disorder, single episode, unspecified; G40.909 Epilepsy, unspecified, not intractable, without status epilepticus; F17.210 Nicotine dependence, cigarettes, uncomplicated; Z88.1 Allergy status to other antibiotic agents; Z88.6 Allergy status to analgesic agent; Z88.8 Allergy status to other drugs, medicaments and biological substances
CPT/HCPCS: 99281

== ENCOUNTER 2020-05-27 22:59 | Emergency (ER) | payer MEDICAID ==
[~2020-05-27] VITALS: Ht 187.9 cm; Wt 104.3 kg
[~2020-05-27 22:59] MED LIST changes: +CYCL10TA9 PO
[2020-05-27 23:00] VITALS: BP 144/84
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
== END 2020-05-27 23:40 | disposition home or self-care (01) ==
LOC: EDUNIT# 22:59 → ER 23:00
DX: R45.4 Irritability and anger (principal); F41.0 Panic disorder [episodic paroxysmal anxiety]; G40.909 Epilepsy, unspecified, not intractable, without status epilepticus; F31.9 Bipolar disorder, unspecified; F20.9 Schizophrenia, unspecified; F41.9 Anxiety disorder, unspecified; Z77.22 Contact with and (suspected) exposure to environmental tobacco smoke (acute) (chronic); Z88.8 Allergy status to other drugs, medicaments and biological substances
CPT/HCPCS: 99283

== ENCOUNTER 2021-03-15 14:03 | Emergency (ER) | payer MEDICAID ==
[~2021-03-15] VITALS: Ht 187 cm; Wt 97.0 kg
[~2021-03-15 14:03] MED LIST changes: -SULF1TAB35 PO; +SULF1TAB38 PO
--- OUTSIDE RECORDS SUMMARY | 2021-03-15 14:09 | XMS REPORT | Clinical Summary ---
Author Author [facility] Organization [facility] Address Unknown Phone Unavailable Care Team Providers Care Project Financial Analyst Name Role Phone PCP Unavailable Allergies Not on File Medications Not on file Active Problems Not on file Social History Date Tobacco Use Types Packs/Day Years Used Never Assessed Sex Assigned at Date Recorded Not on file Last Filed Vital Signs Not on file Plan of Treatment Health Maintenance Due Date Last Done Comments Varicella Vaccines (1 of 1993 2 - 2-dose childhood series) COVID-19 Vaccine (1) 2004 Hepatitis C Screening 2010 DTaP,Tdap,and Td Vaccines 2011 (1 - Tdap) MMR Vaccines-Adult 2011 Influenza Vaccine (#1) 2021 Pneumo-Vaccine: 65+Yrs (1 2057 of 1 - PPSV23) HIB Vaccines Aged Out No longer eligible based on patient's age to complete this topic IPV Vaccines Aged Out No longer eligible based on patient's age to complete this topic Meningococcal Vaccine Aged Out No longer eligib le based on patient's age to complete this topic Pneumo-Vaccine: Peds (0-5 Aged Out No longer el igible based on patient's age to Yrs) & At-Risk Patients complete this topic (6-64 Yrs) Rotavirus Vaccines Aged Out No longer eligible based on patient's age to complete this topic Results Not on filefrom Last 3 Months
[2021-03-15] MEDS ORDERED: NAPR-1071 PO (15:16)
[2021-03-15] MEDS ORDERED: METH-732 PO (15:16)
--- NOTE | 2021-03-15 15:17 | ED Back Pain ---
General Chief Complaint: Back Problems Stated Complaint: BACK PAIN Nursing Triage Note: PT AMB TO [facility] OF MIDDLE BACK PAIN STARTED TODAY RATES PAIN 7/10 W MVT. 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 He states the pain is better when he sits perfectly still and worsens when he twists or turns. No injury. No fevers or chills. Location: Lumbar Spine, Paraspinous Muscles, T-Spine Timing/Duration: 1-3 Hours Severity: Moderate Associated Symptoms: denies symptoms (NIGEL BARFIELD APRN) Allergies and Home Medications Allergies Coded Allergies: guanfacine (Verified Allergy, Unknown, 12/02/17) haloperidol (Unverified Allergy, Unknown, 12/02/17) risperidone (Unverified Allergy, Unknown, 12/02/17) ziprasidone (Unverified Allergy, Unknown, 12/02/17) Patient Home Medication List Home Medication List Reviewed: Yes (NIGEL BARFIELD APRN) Aripiprazole (Abilify) 20 Mg Tablet, 20 MG PO DAILY Prescribed by: NALINI SEWELL on 02/03/171954 Carbamazepine (Tegretol) 200 Mg Tablet, 200 MG PO TID Prescribed by: NALINI SEWELL on 02/03/171954 Cyclobenzaprine HCl (Cyclobenzaprine HCl) 10 Mg Tablet, 10 MG PO Q8H PRN for SPASMS Prescribed by: MINNIE DIAZ on 12/02/172302 Escitalopram Oxalate (Lexapro) 20 Mg Tablet, 20 MG PO DAILY Prescribed by: NALINI SEWELL on 02/03/171954 Levetiracetam (Keppra) 500 Mg Tablet, 500 MG PO BID Prescribed by: NALINI SEWELL on 02/03/171954 Methocarbamol (Methocarbamol) 750 Mg Tablet, 1,500 MG PO Q6-8HR Prescribed by: NIGEL BARFIELD on 03/15/21 1516 Naproxen (Naprosyn) 500 Mg Tablet, 500 MG PO BID PRN for PAIN-MODERATE (5-7) Prescribed by: NIGEL BARFIELD on 03/15/21 1516 Review of Systems Constitutional: see HPI EENTM: see HPI Respiratory: no symptoms reported Cardiovascular: no symptoms reported Genitourinary: no symptoms reported Musculoskeletal: see HPI, back pain Skin: no symptoms reported Psychiatric/Neurological: No Symptoms Reported (NIGEL BARFIELD APRN) Past Eqwhsfk-Ylzaqj-Ozpfwd Hx Patient Social History Tobacco Use?: Yes Tobacco type used: Cigarettes Smoking Status: Current Everyday Smoker Substance use?: No Alcohol Use?: No Pt feels they are or have been: No (NIGEL BARFIELD APRN) Immunizations Up To Date Tetanus Booster (TDap): Unknown (NIGEL BARFIELD APRN) Seasonal Allergies Seasonal Allergies: No (NIGEL BARFIELD APRN) Past Medical History Surgeries: No Adenoidectomy, Tonsillectomy Respiratory: No Cardiac: No Neurological: Yes Seizure Disorder Genitourinary: No Gastrointestinal: No Musculoskeletal: No Endocrine: No HEENT: No Cancer: No Psychosocial: Yes (SUICIDAL IDEATIONS) Anxiety, PTSD, Bipolar, Schizophrenia, Depression Integumentary: Yes Recent Skin Changes Blood Disorders: No (NIGEL BARFIELD APRN) Family Medical History No Pertinent Family Hx (NIGEL BARFIELD APRN) Physical Exam Vital Signs Vital Signs - First Documented 03/15/21 14:34 Temp 37.0 Pulse 93 Resp 18 B/P (MAP) 112/69 (83) Pulse Ox 98 (MARY DE LA CRUZ MD) Vital Signs Capillary Refill : Less Than 3 Seconds (NIGEL BARFIELD APRN) Height, Weight, BMI Height: 6'2.00" Weight: 170lbs. oz. 77.793244hx; 27.00 BMI Method:Stated General Appearance: No Apparent Distress, WD/WN HEENT: PERRL/EOMI, TMs Normal Neck: Full Range of Motion, Normal Inspection Respiratory: No Accessory Muscle Use, No Respiratory Distress Gastrointestinal: Normal Bowel Sounds, Non Tender, Soft Back: Normal Inspection Neurologic/Psychiatric: Alert, Oriented x3 Skin: Normal Color, Warm/Dry (NIGEL BARFIELD APRN) Progress/Results/Core Measures Results/Orders Vital Signs/I&O 03/15/21 03/15/21 14:34 15:31 Temp 37.0 37.0 Pulse 93 93 Resp 18 18 B/P (MAP) 112/69 (83) 112/69 Pulse Ox 98 98 (MARY DE LA CRUZ MD) Blood Pressure Mean: 83 Departure Impression Primary Impression: Muscle spasm of back Disposition: 01 HOME, SELF-CARE Condition: Stable Departure-Patient Inst. Decision time for Depature: 15:15 (NIGEL BARFIELD APRN) Referrals: [facility] (PCP) Primary Care Physician JAZMIN SHARPE (Family) Primary Care Physician Patient Instructions: Muscle Spasm ED Scripts Naproxen (Naprosyn) 500 Mg Tablet 500 MG PO BID PRN for PAIN-MODERATE (5-7), #30 TAB 0 Refills Prov: NIGEL BARFIELD APRN 03/15/21 Methocarbamol (Methocarbamol) 750 Mg Tablet 1500 MG PO Q6-8HR for Back Pain, #15 TAB Prov: NIGEL BARFIELD APRN 03/15/21 Work/School Note: Work Release Form Date Seen in the Emergency Department: Mar 15, 2021 Return to Work: Mar 17, 2021 ATTENDING PHYSICIAN NOTE: I was physically present as attending physician in the emergency department during the care of this patient, but I was not directly involved in the decision making or delivery of care for this patient. (MARY DE LA CRUZ MD) NIGEL BARFIELD APRN Mar 15, 2021 15:17 MARY DE LA CRUZ MD Mar 17, 2021 10:55
[2021-03-15] MEDS: KETOROLAC 60 MG/2 ML VIAL IM ONE ×2 (15:22→15:25)
[2021-03-15] MEDS: ORPHENADRINE 60 MG/2 ML (NORFLEX) AMP (ED ONLY) IM ONE ×2 (15:22→15:25)
[2021-03-15 15:31] VITALS: BP 112/69
== END 2021-03-15 15:30 | disposition home or self-care (01) ==
LOC: EDUNIT# 14:03 → ER 14:06
DX: M62.830 Muscle spasm of back (principal); G40.909 Epilepsy, unspecified, not intractable, without status epilepticus; F41.9 Anxiety disorder, unspecified; F20.9 Schizophrenia, unspecified; F31.9 Bipolar disorder, unspecified; F17.210 Nicotine dependence, cigarettes, uncomplicated; Z79.899 Other long term (current) drug therapy

== ENCOUNTER 2021-04-20 19:53 | Emergency (ER) | payer MEDICAID ==
[~2021-04-20] VITALS: Ht 188 cm; Wt 90.7 kg
[~2021-04-20 19:53] MED LIST changes: +METH-732 PO; +NAPR-1071 PO
[2021-04-20] MEDS ORDERED: LURA40TA3 (20:04)
[2021-04-20 20:24] LABS: BILIRUBIN,URINE NEGATIVE (NEGATIVE); CLARITY,URINE CLEAR; COLOR,URINE YELLOW; GLUCOSE, URINE (UA) NEGATIVE (NEGATIVE); KETONES,URINE NEGATIVE (NEGATIVE); LEUKOCYTE ESTERASE ,URINE NEGATIVE (NEGATIVE); NITRITE,URINE NEGATIVE (NEGATIVE); PROTEIN,URINE NEGATIVE (NEGATIVE)
[2021-04-20 20:35] LABS: AMPHETAMINE SCREEN, URINE NEGATIVE (NEGATIVE); BARBITURATE SCREEN URINE NEGATIVE (NEGATIVE); BENZODIAZEPINES SCREEN URINE NEGATIVE (NEGATIVE); CANNABINOID SCREEN, URINE NEGATIVE (NEGATIVE); COCAINE SCREEN URINE NEGATIVE (NEGATIVE); METHADONE STAT NEGATIVE (NEGATIVE); METHAMPHETAMINE SCREEN URINE S NEGATIVE (NEGATIVE); OPIATE SCREEN URINE NEGATIVE (NEGATIVE); OXYCODONE STAT NEGATIVE (NEGATIVE); PROPOXYPHENE STAT NEGATIVE (NEGATIVE); TRICYCLIC ANTIDEPRESSANTS SCRE NEGATIVE (NEGATIVE)
[2021-04-20 20:36] LABS: BASOPHILS % (AUTO) 0 % (0-10); EOSINOPHILS # (AUTO) 0.1 10^3/uL (0.0-0.3); EOSINOPHILS % (AUTO) 1 % (0-10); HEMATOCRIT 48 % (40-54); LYMPHOCYTES # (AUTO) 2.1 10^3/uL (1.0-4.0); LYMPHOCYTES % (AUTO) 24 % (12-44); MEAN CORPUSCULAR HEMOGLOBIN 29 pg (25-34); MEAN CORPUSCULAR HGB CONC 34 g/dL (32-36); MEAN CORPUSCULAR VOLUME 87 fL (80-99); MEAN PLATELET VOLUME 9.8 fL (9.0-12.2); MONOCYTES # (AUTO) 0.5 10^3/uL (0.0-1.0); MONOCYTES % (AUTO) 6 % (0-12); NEUTROPHILS % (AUTO) 68 % (42-75); PLATELET COUNT 162 10^3/uL (130-400); WHITE BLOOD COUNT 8.8 10^3/uL (4.3-11.0)
[2021-04-20 20:36] LABS: AMORPHOUS SEDIMENT,UR RARE AMOR URATES /LPF; BACTERIA,URINE NEGATIVE /HPF; WBC,URINE 0-2 /HPF
[2021-04-20 20:49] LABS: ALANINE AMINOTRANSFERASE 13 U/L (0-55); ALBUMIN 4.6 GM/DL (3.2-4.5); ALKALINE PHOSPHATASE 74 U/L (40-136); BILIRUBIN,TOTAL 0.5 MG/DL (0.1-1.0); BUN/CREATININE RATIO 14; CALCIUM 9.4 MG/DL (8.5-10.1); CARBON DIOXIDE 25 MMOL/L (21-32); CHLORIDE 106 MMOL/L (98-107); CREATININE SERUM 1.06 MG/DL (0.60-1.30); GFR ESTIMATED 83; GLUCOSE 88 MG/DL (70-105); POTASSIUM 4.2 MMOL/L (3.6-5.0); SALICYLATE < 5.0 MG/DL (5.0-20.0); SODIUM 143 MMOL/L (135-145); TOTAL PROTEIN 7.6 GM/DL (6.4-8.2)
[2021-04-20 20:50] LABS: ACETAMINOPHEN < 10 UG/ML (10-30)
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
[2021-04-20 21:50] VITALS: BP 132/78
== END 2021-04-20 21:54 | disposition home or self-care (01) ==
LOC: EDUNIT# 19:53 → ER 19:54
DX: R45.4 Irritability and anger (principal); F20.9 Schizophrenia, unspecified; F31.9 Bipolar disorder, unspecified; F41.9 Anxiety disorder, unspecified; G40.909 Epilepsy, unspecified, not intractable, without status epilepticus; Z72.0 Tobacco use; Z20.822 Contact with and (suspected) exposure to COVID-19; Z79.899 Other long term (current) drug therapy
CPT/HCPCS: 80053; 80306; 81000; 85025; 87636; 99283; G0480 ×3; 36415; 80320; 80329

== ENCOUNTER 2021-05-08 17:02 | Emergency (ER) | payer MEDICAID ==
[~2021-05-08] VITALS: Ht 187.9 cm; Wt 81.8 kg
[~2021-05-08 17:02] MED LIST changes: +LURA40TA3
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
[2021-05-08 17:33] LABS: BASOPHILS % (AUTO) 0 % (0-10); EOSINOPHILS # (AUTO) 0.2 10^3/uL (0.0-0.3); EOSINOPHILS % (AUTO) 3 % (0-10); HEMATOCRIT 47 % (40-54); HEMOGLOBIN 15.8 g/dL (13.3-17.7); LYMPHOCYTES # (AUTO) 1.7 10^3/uL (1.0-4.0); LYMPHOCYTES % (AUTO) 24 % (12-44); MEAN CORPUSCULAR HEMOGLOBIN 29 pg (25-34); MEAN CORPUSCULAR HGB CONC 33 g/dL (32-36); MEAN CORPUSCULAR VOLUME 87 fL (80-99); MEAN PLATELET VOLUME 9.6 fL (9.0-12.2); MONOCYTES # (AUTO) 0.7 10^3/uL (0.0-1.0); MONOCYTES % (AUTO) 9 % (0-12); NEUTROPHILS # (AUTO) 4.3 10^3/uL (1.8-7.8); NEUTROPHILS % (AUTO) 63 % (42-75); PLATELET COUNT 151 10^3/uL (130-400); WHITE BLOOD COUNT 6.9 10^3/uL (4.3-11.0)
[2021-05-08 17:36] LABS: BILIRUBIN,URINE NEGATIVE (NEGATIVE); CLARITY,URINE CLEAR; COLOR,URINE YELLOW; GLUCOSE, URINE (UA) NEGATIVE (NEGATIVE); KETONES,URINE NEGATIVE (NEGATIVE); LEUKOCYTE ESTERASE ,URINE NEGATIVE (NEGATIVE); NITRITE,URINE NEGATIVE (NEGATIVE); PROTEIN,URINE NEGATIVE (NEGATIVE)
[2021-05-08 17:46] LABS: BACTERIA,URINE NEGATIVE /HPF; RBC,URINE RARE /HPF
[2021-05-08 17:47] LABS: AMPHETAMINE SCREEN, URINE NEGATIVE (NEGATIVE); BARBITURATE SCREEN URINE NEGATIVE (NEGATIVE); BENZODIAZEPINES SCREEN URINE NEGATIVE (NEGATIVE); CANNABINOID SCREEN, URINE NEGATIVE (NEGATIVE); COCAINE SCREEN URINE NEGATIVE (NEGATIVE); METHADONE STAT NEGATIVE (NEGATIVE); METHAMPHETAMINE SCREEN URINE S NEGATIVE (NEGATIVE); OPIATE SCREEN URINE NEGATIVE (NEGATIVE); OXYCODONE STAT NEGATIVE (NEGATIVE); PROPOXYPHENE STAT NEGATIVE (NEGATIVE); TRICYCLIC ANTIDEPRESSANTS SCRE NEGATIVE (NEGATIVE)
[2021-05-08 17:56] LABS: ALBUMIN 4.5 GM/DL (3.2-4.5); CHLORIDE 105 MMOL/L (98-107); POTASSIUM 3.6 MMOL/L (3.6-5.0); SODIUM 141 MMOL/L (135-145)
[2021-05-08 17:58] LABS: CALCIUM 9.7 MG/DL (8.5-10.1)
[2021-05-08 17:59] LABS: GLUCOSE 82 MG/DL (70-105); TOTAL PROTEIN 7.4 GM/DL (6.4-8.2)
[2021-05-08 18:00] LABS: CARBON DIOXIDE 23 MMOL/L (21-32)
[2021-05-08 18:01] LABS: BILIRUBIN,TOTAL 0.7 MG/DL (0.1-1.0)
[2021-05-08 18:03] LABS: ALKALINE PHOSPHATASE 69 U/L (40-136); CREATININE SERUM 0.92 MG/DL (0.60-1.30); GFR ESTIMATED 98
[2021-05-08 18:04] LABS: BUN/CREATININE RATIO 13
[2021-05-08 18:05] LABS: SALICYLATE < 5.0 MG/DL (5.0-20.0)
[2021-05-08 18:06] LABS: ALANINE AMINOTRANSFERASE 14 U/L (0-55)
[2021-05-08 18:10] LABS: ACETAMINOPHEN < 10 UG/ML (10-30)
[2021-05-09 05:37] VITALS: BP 115/79
--- OUTSIDE RECORDS SUMMARY | 2021-05-09 11:56 | XMS REPORT | Encounter Summary ---
Author Author [facility] Address Unknown Phone Unavailable Care Team Providers Care Ward Assistant Name Role Phone PCP Unavailable Encounter Details Care Team Description Date Type Department 05/08/2021 Travel Social History Date Tobacco Use Types Packs/Day Years Used Never Assessed Sex Assigned at Date Recorded Male 05/09/2021 10:33 AM [employer] Job Start Date Occupation Not on file Not on file Not on file Date Recorded COVID-19 Exposure Response 05/08/2021 11:29 PM [employer] In the last month, have you been in contact with No / Unsure someone who was confirmed or suspected to have Coronavirus / COVID-19? documented as of this encounter Plan of Treatment Not on filedocumented as of this encounter Visit Diagnoses Not on filedocumented in this encounter
--- OUTSIDE RECORDS SUMMARY | 2021-05-09 11:56 | XMS REPORT | Clinical Summary ---
Author Author [facility] Address Unknown Phone Unavailable Care Team Providers Care [employer] Cleaner Name Role Phone Unassigned, None PCP Unavailable Allergies Comments Active Allergy Reactions Severity Noted Date Patient reports shakiness, tremors. Amphetamine-Dextroampheta Other (See Medium 04/19 mine Comments) Reports having tremors and being shaky. Benztropine Other (See Medium 05/09/2021 Comments) Unknown reaction. Guanfacine Other (See Medium 05/09/2021 Comments) He reports tremors, jitteriness. Haloperidol Other (See Medium 05/09/2021 Comments) Reports causes Gynecomastia. Risperidone Other (See Medium 05/09/2021 Comments) Tremors and shakiness. Atomoxetine Other (See Medium 05/09/2021 Comments) He reports shakiness and tremors. Lisdexamfetamine Other (See Medium 05/09/2021 Comments) Medications End Date Status Medication Sig Dispensed Refills Start Date Suspended lurasidone (LATUDA) 40 MG Take 40 mg by 0 tablet mouth daily with dinner. Take one-half tablet by mouth once daily with food for 7 days then increase to one tablet by mouth daily thereafter.(M ust have appointment for refill). Active Problems Not on file Encounters Care Team Description Date Type Specialty 05/08/2021 Travel from Last 3 Months Social History Date Tobacco Use Types Packs/Day Years Used Current Every Day Smoker 0.5 Smokeless Tobacco: Never Used Tobacco Cessation: Ready to Quit: Yes; C ounseling Given: No Comments Alcohol Use Standard Drinks/Week Not Currently 0 (1 standard drink = 0.6 o z pure alcohol) Control Partners Comments Sexually Active Condom Female Yes Sex Assigned at Date Recorded Male 05/09/2021 10:33 AM [employer] Job Start Date Occupation Not on file Not on file Not on file Date Recorded COVID-19 Exposure Response 05/08/2021 11:29 PM [employer] In the last month, have you been in contact with No / Unsure someone who was confirmed or suspected to have Coronavirus / COVID-19? Last Filed Vital Signs Reading Time Taken Comments Vital Sign 120/77 05/09/2021 9:06 AM [employer] Blood Pressure 83 05/09/2021 9:06 AM [employer] Pulse 36.8 C (98.3 F) 05/09/2021 9:05 AM [employer] Temperature 16 05/09/2021 9:06 AM [employer] Respiratory Rate 98% 05/09/2021 9:06 AM [employer] Oxygen Saturation - - Inhaled Oxygen Concentration 97.5 kg (215 lb) 05/09/2021 9:05 AM [employer] Weight 189.2 cm (6' 2.5") 05/09/2021 9:05 AM [employer] Height 27.24 05/09/2021 9:05 AM [employer]STER [employer] Body Mass Index Plan of Treatment Health Maintenance Due Date Last Done Comments Varicella Vaccines (1 of 1993 2 - 2-dose childhood series) COVID-19 Vaccine (1) 1997 Pneumo-Vaccine: 65+Yrs (1 1998 of 2 - PPSV23) Pneumo-Vaccine: Peds (0-5 1998 Yrs) & At-Risk Patients (6-64 Yrs) (1 of 2 - PPSV23) Hepatitis C Screening 2010 DTaP,Tdap,and Td Vaccines 2011 (1 - Tdap) MMR Vaccines-Adult 2011 Influenza Vaccine (#1) 2021 04/27/2020 HIB Vaccines Aged Out No longer eligible based on patient's age to complete this topic IPV Vaccines Aged Out No longer eligible based on patient's age to complete this topic Meningococcal Vaccine Aged Out No longer eligib le based on patient's age to complete this topic Rotavirus Vaccines Aged Out No longer eligible based on patient's age to complete this topic Results Not on filefrom Last 3 Months Insurance Type Payer Benefit Subscriber ID Effective Phone Address Plan / Dates Group [employer] 19 [id number] 2021- [phone] [address] Present [address] [place] [address] Advance Directives For more information, please contact: [phone] Patient Wick Tender Explanation Type Date Recorded Advance Directives and Living Will Power of Temporary Office Assistant Date Inactivated Comments Code Status Date Activated Full Code 05/09/2021 10:03 AM Care Teams Start Date End Date [employer]er Relationship Specialty 05/09/21 Unassigned, None PCP - General [place]
== END 2021-05-09 05:28 ==
LOC: EDUNIT# 17:02 → ER 17:03
DX: R45.850 Homicidal ideations (principal); F31.9 Bipolar disorder, unspecified; F20.9 Schizophrenia, unspecified; Z20.822 Contact with and (suspected) exposure to COVID-19; Z79.899 Other long term (current) drug therapy
CPT/HCPCS: 80053; 80306; 81000; 85025; 87636; 93005; 99283; G0480 ×3; 36415; 80320; 80329

== ENCOUNTER 2021-12-11 11:53 | Emergency (ER) | payer MEDICARE, MEDICAID ==
[~2021-12-11] VITALS: Ht 187 cm; Wt 104.3 kg
[~2021-12-11 11:53] MED LIST changes: +CYCL10TA25 PO; -CYCL10TA9 PO; +LURA40TA2; -LURA40TA3
[2021-12-11 12:21] LABS: BASOPHILS % (AUTO) 0 % (0-10); EOSINOPHILS # (AUTO) 0.1 10^3/uL (0.0-0.3); EOSINOPHILS % (AUTO) 1 % (0-10); HEMATOCRIT 49 % (40-54); HEMOGLOBIN 16.2 g/dL (13.3-17.7); LYMPHOCYTES # (AUTO) 2.3 10^3/uL (1.0-4.0); LYMPHOCYTES % (AUTO) 31 % (12-44); MEAN CORPUSCULAR HEMOGLOBIN 29 pg (25-34); MEAN CORPUSCULAR HGB CONC 33 g/dL (32-36); MEAN CORPUSCULAR VOLUME 88 fL (80-99); MEAN PLATELET VOLUME 9.6 fL (9.0-12.2); MONOCYTES # (AUTO) 0.5 10^3/uL (0.0-1.0); MONOCYTES % (AUTO) 7 % (0-12); NEUTROPHILS # (AUTO) 4.7 10^3/uL (1.8-7.8); NEUTROPHILS % (AUTO) 62 % (42-75); PLATELET COUNT 144 10^3/uL (130-400); WHITE BLOOD COUNT 7.5 10^3/uL (4.3-11.0)
[2021-12-11 12:31] LABS: ALBUMIN 4.4 GM/DL (3.2-4.5); POTASSIUM 4.2 MMOL/L (3.6-5.0)
[2021-12-11 12:33] LABS: CALCIUM 9.3 MG/DL (8.5-10.1)
[2021-12-11 12:34] LABS: TOTAL PROTEIN 7.4 GM/DL (6.4-8.2)
[2021-12-11 12:37] LABS: CREATININE SERUM 0.85 MG/DL (0.60-1.30); INR 1.1 (0.8-1.4); PROTHROMBIN TIME PATIENT 14.4 SEC (12.2-14.7)
[2021-12-11 12:41] LABS: MAGNESIUM 1.8 MG/DL (1.6-2.4)
--- NOTE | 2021-12-11 12:43 | Diagnostic Imaging Report ---
INDICATION: Chest pain. FINDINGS: The heart and lungs appear normal. IMPRESSION: Negative. Dictated by: Dictated on workstation # [id number]
[2021-12-11] MEDS ORDERED: KETOROLAC 30 MG/ML VIAL IVP ONE (13:00)
--- NOTE | 2021-12-11 13:36 | ED Chest Pain ---
General Chief Complaint: Chest Wall Stated Complaint: L SIDE RIB PAIN Nursing Triage Note: PT PRESENTS TO ED VIA POV FROM HOME WITH COMPLAINTS OF L SIDED CHEST WALL PAIN WORSE WITH INSPIRATION AND EXPIRATION X 4 DAYS. PT DENIES ANY INJURY Source: patient Exam Limitations: no limitations History of Present Illness Date Seen by Provider: Dec 11, 2021 Time Seen by Provider: 12:07 Initial Comments This 31-year-old young man presents to the emergency room with pleuritic type pain in the left lower chest just lateral to the sternum with inspiration over the past 4 days. He denies any recent illnesses. He does smoke. He denies any injury. He has no cough, fever, or rash. He has not taken any medications to treat his pain. He rates the pain as 8/10. Allergies and Home Medications Allergies Coded Allergies: guanfacine (Verified Allergy, Unknown, 12/02/17) haloperidol (Unverified Allergy, Unknown, 12/02/17) risperidone (Unverified Allergy, Unknown, 12/02/17) ziprasidone (Unverified Allergy, Unknown, 12/02/17) Patient Home Medication List Home Medication List Reviewed: Yes Lurasidone HCl (Latuda) 40 Mg Tablet, (Reported) Entered as Reported by: DOMINGO VASQUEZ on 04/20/212003 Review of Systems Review of Systems Constitutional: no symptoms reported EENTM: No Symptoms Reported Respiratory: See HPI Cardiovascular: No Symptoms Reported Gastrointestinal: No Symptoms Reported Genitourinary: No Symptoms Reported Musculoskeletal: no symptoms reported Skin: no symptoms reported Psychiatric/Neurological: No Symptoms Reported Endocrine: No Symptoms Reported Hematologic/Lymphatic: No Symptoms Reported Past Vwibnvf-Mrdgap-Trhclq Hx Patient Social History Tobacco Use?: Yes Tobacco type used: Cigarettes Smoking Status: Current Everyday Smoker Substance use?: No Alcohol Use?: No Pt feels they are or have been: No Immunizations Up To Date Tetanus Booster (TDap): Unknown Seasonal Allergies Seasonal Allergies: No Past Medical History Surgery/Hospitalization HX: ptsd,bipolar,adhd,paranoid schizophrenia Surgeries: Yes Adenoidectomy, Ear Surgery (BMT), Tonsillectomy Respiratory: No Cardiac: No Neurological: Yes Seizure Disorder Genitourinary: No Gastrointestinal: No Musculoskeletal: No Endocrine: No HEENT: No Cancer: No Psychosocial: Yes (SUICIDAL IDEATIONS) Anxiety, PTSD, Bipolar, Schizophrenia, Depression Integumentary: Yes Recent Skin Changes Blood Disorders: No Family Medical History No Pertinent Family Hx Physical Exam Vital Signs Vital Signs - First Documented 12/11/21 11:55 Temp 35.9 Pulse 67 Resp 18 B/P (MAP) 138/83 (101) Pulse Ox 99 Capillary Refill : Less Than 3 Seconds Height, Weight, BMI Height: 6'2.00" Weight: 170lbs. oz. 77.492829ew; 29.00 BMI Method:Stated General Appearance: WD/WN, Mild Distress HEENT: PERRL/EOMI, Normal ENT Inspection Neck: Normal Inspection Respiratory: No Accessory Muscle Use, No Respiratory Distress, Pleural Rub (Left lower anterior chest) Cardiovascular: Regular Rate, Rhythm, No Edema, No Murmur Gastrointestinal: Non Tender, Soft Extremity: Normal Inspection, Non Tender, No Pedal Edema Neurologic/Psychiatric: Alert, Oriented x3, No Motor/Sensory Deficits, Normal Mood/Affect Skin: Normal Color, Warm/Dry Progress/Results/Core Measures Results/Orders Lab Results Laboratory Tests Test 12/11/21 12:13 Range/Units White Blood Count 7.5 4.3-11.0 10^3/uL Red Blood Count 5.59 H 4.30-5.52 10^6/uL Hemoglobin 16.2 13.3-17.7 g/dL Hematocrit 49 40-54 % Mean Corpuscular Volume 88 80-99 fL Mean Corpuscular Hemoglobin 29 25-34 pg Mean Corpuscular Hemoglobin Concent 33 32-36 g/dL Red Cell Distribution Width 13.0 10.0-14.5 % Platelet Count 144 130-400 10^3/uL Mean Platelet Volume 9.6 9.0-12.2 fL Immature Granulocyte % (Auto) 0 % Neutrophils (%) (Auto) 62 42-75 % Lymphocytes (%) (Auto) 31 12-44 % Monocytes (%) (Auto) 7 0-12 % Eosinophils (%) (Auto) 1 0-10 % Basophils (%) (Auto) 0 0-10 % Neutrophils # (Auto) 4.7 1.8-7.8 10^3/uL Lymphocytes # (Auto) 2.3 1.0-4.0 10^3/uL Monocytes # (Auto) 0.5 0.0-1.0 10^3/uL Eosinophils # (Auto) 0.1 0.0-0.3 10^3/uL Basophils # (Auto) 0.0 0.0-0.1 10^3/uL Immature Granulocyte # (Auto) 0.0 0.0-0.1 10^3/uL Prothrombin Time 14.4 12.2-14.7 SEC INR Comment 1.1 0.8-1.4 Activated Partial Thromboplast Time 32 24-35 SEC D-Dimer <= 0.27 0.00-0.49 UG/ML Sodium Level 139 135-145 MMOL/L Potassium Level 4.2 3.6-5.0 MMOL/L Chloride Level 105 98-107 MMOL/L Carbon Dioxide Level 24 21-32 MMOL/L Anion Gap 10 5-14 MMOL/L Blood Urea Nitrogen 15 7-18 MG/DL Creatinine 0.85 0.60-1.30 MG/DL Estimat Glomerular Filtration Rate 121 BUN/Creatinine Ratio 18 Glucose Level 93 70-105 MG/DL Calcium Level 9.3 8.5-10.1 MG/DL Corrected Calcium 9.0 8.5-10.1 MG/DL Magnesium Level 1.8 1.6-2.4 MG/DL Total Bilirubin 1.0 0.1-1.0 MG/DL Aspartate Amino Transf (AST/SGOT) 17 5-34 U/L Alanine Aminotransferase (ALT/SGPT) 17 0-55 U/L Alkaline Phosphatase 75 40-136 U/L Myoglobin 34.2 10.0-92.0 NG/ML Troponin I < 0.028 <0.028 NG/ML C-Reactive Protein High Sensitivity 0.41 0.00-0.50 MG/DL Total Protein 7.4 6.4-8.2 GM/DL Albumin 4.4 3.2-4.5 GM/DL My Orders Orders - MARY DE LA CRUZ MD Cbc With Automated Diff (12/11/21 12:07) Magnesium (12/11/21 12:07) Chest 1 View, Ap/Pa Only (12/11/21 12:07) Ekg Tracing (12/11/21 12:07) Comprehensive Metabolic Panel (12/11/21 12:07) Myoglobin Serum (12/11/21 12:07) Protime With Inr (12/11/21 12:07) Partial Thromboplastin Time (12/11/21 12:07) O2 (12/11/21 12:07) Monitor-Rhythm Ecg Trace Only (12/11/21 12:07) Ed Iv/Invasive Line Start (12/11/21 12:07) Fibrin Degradation Products (12/11/21 12:07) Troponin I [place] (12/11/21 12:07) Ketorolac Injection (Toradol Injection) (12/11/21 13:00) Hs C Reactive Protein (12/11/21 13:01) Medications Given in ED Current Medications Medications Dose Ordered Sig/Adriana Route Start Time Stop Time Status Last Admin Dose Admin Ketorolac Tromethamine 30 mg ONCE ONCE IVP 12/11/21 13:00 12/11/21 13:01 DC 12/11/21 13:14 30 MG Vital Signs/I&O 12/11/21 12/11/21 11:55 13:44 Temp 35.9 35.9 Pulse 67 98 Resp 18 18 B/P (MAP) 138/83 (101) 136/80 Pulse Ox 99 99 Blood Pressure Mean: 101 Progress Progress Note : Progress Note Work-up was unremarkable. Pain seems pleuritic in nature and was associated with pleuritic rub. Toradol was administered and greatly improved his pain. See discharge instructions for further discussion. Initial ECG Impression Date: Dec 11, 2021 Initial ECG Impression Time: 12:18 Initial ECG Rate: 65 Initial ECG Rhythm: Normal Sinus Comment Sinus rhythm with variable rate. No ST elevation or depression. No abnormal intervals or axis deviation. Diagnostic Imaging Diagonstic Imaging: Xray Plain Films/CT/US/NM/MRI: chest Comments NAME: BERNADINE GUADARRAMA [employer] [facility] REC#: [id number] PT STATUS: REG ER : 1990 PHYSICIAN: MARY DE LA CRUZ MD ADMIT DATE: 12/11/21/ER Signed Date of Exam:12/11/21 CHEST 1 VIEW, AP/PA ONLY INDICATION: Chest pain. FINDINGS: The heart and lungs appear normal. IMPRESSION: Negative. Dictated by: Dictated on workstation # [id number] Dict: 12/11/21 1227 Trans: 12/11/21 1244 [id number] Interpreted by: YOLANDE JACKSON Electronically signed by: YOLANDE JACKSON 12/11/21 1244 Departure Impression Primary Impression: Pleuritic chest pain Disposition: 01 HOME, SELF-CARE Condition: Improved Departure-Patient Inst. Decision time for Depature: 13:34 Referrals: [facility] (PCP) Primary Care Physician JAZMIN SHARPE (Family) Primary Care Physician Patient Instructions: Pleuritic Chest Pain ED Add. Discharge Instructions: Your pain is likely caused by pleuritis or pleuritic chest pain. The primary treatment for this is anti-inflammatory (NSAID) medication. You may take naproxen (Aleve) up to 500 mg twice daily or ibuprofen up to 600 mg 3 times daily as primary treatment. You may additionally add Tylenol (acetamino phen) up to 1000 mg every 6 hours as needed for additional pain relief. Your pain should gradually improve while taking NSAID medications but it may take a week or two to resolve. Take NSAID medications with food or milk to avoid stomach irritation. Follow-up with your primary care provider if you are not noting significant improvement by the end of next week. Return to the ER if you are having worsening symptoms despite following these instructions. All discharge instructions reviewed with patient and/or family. Voiced understanding. MARY DE LA CRUZ MD Dec 11, 2021 13:36
[2021-12-11 13:44] VITALS: BP 136/80
== END 2021-12-11 13:44 | disposition home or self-care (01) ==
LOC: EDUNIT# 11:53 → ER 11:55
DX: R07.81 Pleurodynia (principal); F17.210 Nicotine dependence, cigarettes, uncomplicated
CPT/HCPCS: 36415; 71045; 80053; 83735; 83874; 84484; 85025; 85379; 85610; 85730; 86141; 93005; 93041

== ENCOUNTER 2022-02-26 02:23 | Emergency (ER) | payer MEDICAID, MEDICARE, OTHER ==
[~2022-02-26] VITALS: Ht 187 cm; Wt 104.3 kg
[2022-02-26 02:29] VITALS: BP 137/83
[2022-02-26] MEDS ORDERED: CARI3CAP PO (02:33)
--- NOTE | 2022-02-26 02:46 | ED EENT ---
History of Present Illness General Chief Complaint: Dental Problems/Pain Stated Complaint: TOOTHACHE,UNABLE TO SLEEP Nursing Triage Note: left upper rear broken tooth. dental pain x1 week Source: patient Exam Limitations: no limitations History of Present Illness Date Seen by Provider: Feb 26, 2022 Time Seen by Provider: 02:33 Initial Comments Here with report of left upper rear tooth that is cracked and has pain. He has tried topical lidocaine and that has not helped. He will follow-up with a dentist as soon as possible but the pain is quite significant tonight. He has not tried ibuprofen or Tylenol at home. Denies other problems. Tooth cracked a few days ago when he had another piece earlier tonight and now has the pain. Timing/Duration: abrupt Severity: moderate Location: dental Prearrival Treatment: other (Topical lidocaine) Associated Symptoms: tooth pain Allergies and Home Medications Allergies Coded Allergies: guanfacine (Verified Allergy, Unknown, 12/02/17) haloperidol (Unverified Allergy, Unknown, 12/02/17) risperidone (Unverified Allergy, Unknown, 12/02/17) ziprasidone (Unverified Allergy, Unknown, 12/02/17) Patient Home Medication List Home Medication List Reviewed: Yes Cariprazine Hydrochloride (Vraylar) 3 Mg Capsule, Unknown Dose PO, (Reported) Entered as Reported by: DOMINGO VASQUEZ on 02/26/22232 Last Action: New Order Discontinued Medications Lurasidone HCl (Latuda) 40 Mg Tablet, (Reported) Discontinued Reason: No Longer Taking Entered as Reported by: DOMINGO VASQUEZ on 04/20/212003 Last Action: Discontinued Review of Systems Review of Systems Constitutional: see HPI; No chills, No fever Mouth: pain; denies swelling Respiratory: no symptoms reported Cardiovascular: no symptoms reported Skin: No change in color, No lesions Past Urzmtur-Qbrwqr-Kknewx Hx Patient Social History Tobacco Use?: Yes Substance use?: No Alcohol Use?: No Pt feels they are or have been: No Immunizations Up To Date Tetanus Booster (TDap): Unknown First/Initial COVID19 Vaccinat: x2 Seasonal Allergies Seasonal Allergies: No Past Medical History Surgery/Hospitalization HX: ptsd,bipolar,adhd,paranoid schizophrenia, bmt, t/a, anxiety, depression, Surgeries: Yes Adenoidectomy, Ear Surgery, Tonsillectomy Respiratory: No Cardiac: No Neurological: Yes Seizure Disorder Genitourinary: No Gastrointestinal: No Musculoskeletal: No Endocrine: No HEENT: No Cancer: No Psychosocial: Yes (SUICIDAL IDEATIONS) Anxiety, PTSD, Bipolar, Schizophrenia, Depression Integumentary: Yes Recent Skin Changes Blood Disorders: No Family Medical History Reviewed Nursing Family Hx No Pertinent Family Hx Physical Exam Vital Signs Vital Signs - First Documented 02/26/22 02:29 Temp 35.8 Pulse 101 Resp 18 B/P (MAP) 137/83 (101) Pulse Ox 97 O2 Delivery Room Air Height, Weight, BMI Height: 6'2.00" Weight: 170lbs. oz. 77.277289ii; 29.00 BMI Method:Stated General Appearance: WD/WN, no apparent distress Mouth/Throat: dental tenderness (Near #16); No maxillary swelling, No pharynx tenderness, No voice changes Neck: full range of motion, supple Cardiovascular: regular rate, rhythm, no murmur Respiratory: lungs clear, normal breath sounds Neurologic/Psychiatric: alert, oriented x 3 Progress/Results/Core Measures Results/Orders My Orders Orders - KRISTIE RUSHING MD Rx-Hydrocodone/Apap 5-325 Mg (Rx-Vicodin (02/26/22 02:45) Vital Signs/I&O 02/26/22 02:29 Temp 35.8 Pulse 101 Resp 18 B/P (MAP) 137/83 (101) Pulse Ox 97 O2 Delivery Room Air Blood Pressure Mean: 101 Progress Progress Note : Progress Note Seen and evaluated. He does have partially fractured tooth that we will need dental evaluation. Dental Lasix given. I will send him home with a go pack of hydrocodone and then discussed [id number] options and the need to follow- up with dentist JANNET. Discharged home with return precautions. Patient verbalized understanding instructions and agreement with plan. Departure Impression Primary Impression: Fractured tooth Qualified Codes: S02.5XXA - Fracture of tooth (traumatic), initial encounter for closed fracture Disposition: HOME, SELF-CARE Condition: Stable Departure-Patient Inst. Decision time for Depature: 02:51 Referrals: [facility] (PCP) Primary Care Physician JAZMIN SHARPE (Family) Primary Care Physician Patient Instructions: Dental Pain (DC), Fractured Tooth (DC) Add. Discharge Instructions: All discharge instructions reviewed with patient and/or family. Voiced understanding. You may use dental wax over area of tooth that is fractured to prevent air from getting to the root. Continue to brush your teeth a couple times daily. You may rinse with salt water solution using 1 teaspoon of salt and a cup of warm water and rinsing with that a few times daily and spitting out afterwards. Do not swallow the salt water. Follow-up with a dentist as soon as possible. You may take ibuprofen 800 mg every 8 hours as needed for pain. You may take Tylenol/acetaminophen 1000 mg every 6-8 hours as needed for pain if you are not taking the pain medicine that was given to you as they both have acetaminophen in them. Return for worse pain, swelling, fever or other concerns as needed. Images Mouth/Nose 1 - Fracture Tooth KRISTIE RUSHING MD Feb 26, 2022 02:46
== END 2022-02-26 02:55 | disposition home or self-care (01) ==
LOC: EDUNIT# 02:23 → ER 02:26
DX: S02.5XXA Fracture of tooth (traumatic), initial encounter for closed fracture (principal); Z72.0 Tobacco use; X58.XXXA Exposure to other specified factors, initial encounter
CPT/HCPCS: 99283

== ENCOUNTER 2022-04-11 00:06 | Emergency (ER) | payer MEDICAID ==
[~2022-04-11 00:06] MED LIST changes: +CARI3CAP PO
[2022-04-11] MEDS ORDERED: RX-AMOXICILLIN 500 MG CAP #3 PPK PO STA (00:48)
[2022-04-11] MEDS ORDERED: RX-NAPROXEN (NAPROSYN) 250 MG TAB PPK#4 PO STA (00:48)
[2022-04-11] MEDS ORDERED: LIDO20SO23 MM (00:51)
[2022-04-11] MEDS ORDERED: AMOX875T2 PO (00:51)
[2022-04-11] MEDS ORDERED: NAPR500T8 PO (00:51)
--- NOTE | 2022-04-11 00:51 | ED EENT ---
History of Present Illness General Chief Complaint: Dental Problems/Pain Stated Complaint: TOOTH PAIN Nursing Triage Note: PT AMB TO FT WITH FAMILY MEMBER WI TH C/O L TOOTH PAIN FROM A BROKEN TOOTH. PT STATES IT WOKE HIM UP FROM A SLEEP TONIGHT. PT HAS KNOWN DENTAL ISSUE AND HAS AN APPOINTMENT WITH [facility] DENTIST Source: patient History of Present Illness Date Seen by Provider: Apr 11, 2022 Time Seen by Provider: 00:35 Initial Comments PT ARRIVES VIA POV FROM HOME WITH A FEMALE C/O DENTAL PAIN --LEFT LOWER 3RD MOLAR THIS IS AN ONGOING PROBLEM FOR A FEW WEEKS, BUT TONIGHT WOKE HIM UP JUST PRIOR TO ARRIVAL NO FEVER NO SWELLING TO FACE ALSO C/O ONGOING PAIN TO LEFT UPPER 3RD MOLAR--"BROKEN TOOTH" --ONGOING FOR A FEW MONTHS HAS NOT TAKEN ANYTHING FOR PAIN TRIED TOPICAL LIDOCAINE WITHOUT RELIEF PT REPORTS TO ME THAT HE DOES NOT ACTUALLY HAVE AN APPOINTMENT WITH THE DENTIST. TELLS ME THAT "HE'S BEEN TRYIN' TO CALL THEM" --BUT TELLS ME THAT HE HAS NOT ACTUALLY TALKED WITH ANYONE. PCP; [facility] Allergies and Home Medications Allergies Coded Allergies: guanfacine (Verified Allergy, Unknown, 12/02/17) haloperidol (Unverified Allergy, Unknown, 12/02/17) risperidone (Unverified Allergy, Unknown, 12/02/17) ziprasidone (Unverified Allergy, Unknown, 12/02/17) Patient Home Medication List Home Medication List Reviewed: Yes Amoxicillin (Amoxicillin) 875 Mg Tablet, 875 MG PO BID Prescribed by: DELL WELCH on 04/11/2250 Cariprazine Hydrochloride (Vraylar) 3 Mg Capsule, Unknown Dose PO, (Reported) Entered as Reported by: DOMINGO VASQUEZ on 02/26/22 023 Lidocaine HCl (Lidocaine HCl Viscous) 2 % Solution, 1-2 ML MM [id number] Prescribed by: DELL WELCH on 04/11/2250 Naproxen (Naproxen) 500 Mg Tablet.dr, 500 MG PO BID Prescribed by: DELL WELCH on 04/11/2250 Review of Systems Review of Systems Constitutional: no symptoms reported Eyes: No Symptoms Reported Ears: No Symptoms Reported Nose: no symptoms reported Mouth: see HPI Throat: no symptoms reported Respiratory: no symptoms reported Cardiovascular: no symptoms reported Gastrointestinal: no symptoms reported Skin: no symptoms reported Neurological: Anxiety Hematologic/Lymphatic: No Symptoms Reported Past Essyezk-Cbbfpk-Lzlvlz Hx Patient Social History Tobacco Use?: Yes Tobacco type used: Cigarettes Smoking Status: Current Everyday Smoker Substance use?: No Alcohol Use?: No Pt feels they are or have been: No Immunizations Up To Date Tetanus Booster (TDap): Unknown First/Initial COVID19 Vaccinat: x2 Second COVID19 Vaccination Morales: X2 Seasonal Allergies Seasonal Allergies: No Past Medical History Surgery/Hospitalization HX: ptsd,bipolar,adhd,paranoid schizophrenia, bmt, t/a, anxiety, depression, Surgeries: Yes Adenoidectomy, Ear Surgery, Tonsillectomy Respiratory: No Cardiac: No Neurological: Yes Seizure Disorder Genitourinary: No Gastrointestinal: No Musculoskeletal: No Endocrine: No HEENT: No Cancer: No Psychosocial: Yes (SUICIDAL IDEATIONS) Anxiety, PTSD, Bipolar, Schizophrenia, Depression Integumentary: No Blood Disorders: No Family Medical History No Pertinent Family Hx OF 04/11/22, PT IS ONLY TAKING VRAYLAR FOR MENTAL HEALTH ISSUES. Physical Exam Vital Signs Vital Signs - First Documented 04/11/22 00:18 Temp 36.8 Pulse 76 Resp 22 B/P (MAP) 160/112 (128) Height, Weight, BMI Height: 6'2.00" Weight: 170lbs. oz. 77.580214ww; 29.00 BMI Method:Stated General Appearance: WD/WN, other (EXTREMELY ANXIOUS, ROCKING BACK AND FORTH AND CONSTANT MOVEMENTS OF ENTIRE BODY. TALKS NON-STOP AND SPEECH IS VERY RAPID) Eyes: bilateral eye normal inspection, bilateral eye PERRL, bilateral eye EOMI Ears: bilateral ear TM normal Nose: normal inspection Mouth/Throat: pharynx normal, dental tenderness; No excessive drooling, No mandibular swelling, No maxillary swelling, No voice changes; other (LEFT LOWER 3RD MOLAR PARTIALLY ERUPTED WITH MILD TO MODERATE SURROUNDING GUM INFLAMMATION WITH ERYTHEMA AND SWELLING. HAS TENDERNESS TO LEFT UPPER 3RD MOLAR, BUT NO APPRECIABLE SURROUNDING GUM INFLAMMATION. CANNOT VISUALIZE ALL OF THIS TOOTH. NO FACIAL SWELLING OR MAXILLARY OR MANDIBULAR TENDERNESS. ) Neck: non-tender, full range of motion, supple, normal inspection; No lymphadenopathy (R), No lymphadenopathy (L) Cardiovascular: regular rate, rhythm, no murmur Respiratory: normal breath sounds Neurologic/Psychiatric: toll service observer II-XII nml as tested, no motor/sensory deficits, alert, oriented x 3 Skin: normal color, warm/dry, tattoos/piercings Progress/Results/Core Measures Results/Orders My Orders Orders - DELL WELCH DO Rx-Amoxicillin Capsule (Rx-Polymox Capsu (04/11/22 00:48) Rx-Naproxen (Rx-Naprosyn) (04/11/22 00:48) Lidocaine 2% Viscous 15 Ml (Xylocaine Vi (04/11/22 01:00) Vital Signs/I&O 04/11/22 00:18 Temp 36.8 Pulse 76 Resp 22 B/P (MAP) 160/112 (128) Blood Pressure Mean: 128 Departure Impression Primary Impression: Impacted third molar tooth Disposition: HOME, SELF-CARE Condition: Stable Departure-Patient Inst. Decision time for Depature: 00:49 Referrals: [facility] (PCP/Family) Primary Care Physician Patient Instructions: Impacted Tooth Add. Discharge Instructions: FREQUENT SALT WATER SWISHES TYLENOL 1 GRAM EVERY 6 HOURS NEEDED FOR PAIN FOLLOW UP WITH DENTIST SOON POSSIBLE--CALL IN THE MORNING TO SCHEDULE AN APPOINTMENT All discharge instructions reviewed with patient and/or family. Voiced understanding. Scripts Lidocaine HCl (Lidocaine HCl Viscous) 2 % Solution 1-2 ML MM [id number], #120 ML Prov: DELL WELCH DO 04/11/22 Naproxen (Naproxen) 500 Mg Tablet. 500 MG PO BID, #20 TAB Prov: DELL WELCH DO 04/11/22 Amoxicillin (Amoxicillin) 875 Mg Tablet 875 MG PO BID, #20 TAB Prov: DELL WELCH DO 04/11/22 DELL WELCH DO Apr 11, 2022 00:51
[2022-04-11] MEDS ORDERED: LIDOCAINE 2% VISCOUS 15 ML UDC MM ONE (01:00)
[2022-04-11 01:02] VITALS: BP 160/112
== END 2022-04-11 01:03 | disposition home or self-care (01) ==
LOC: EDUNIT# 00:06 → ER 00:09
DX: K01.1 Impacted teeth (principal); F17.210 Nicotine dependence, cigarettes, uncomplicated
CPT/HCPCS: 99283